=== PATIENT | female | born 2000 | race Caucasian/White ===

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

== ENCOUNTER → 2021-01-26 | Outpatient (CLI) | payer OTHER ==
--- NOTE | 2021-01-26 08:52 | REP ---
INDICATION: EPIGASTRIC PAIN. COMPARISON: CT 12/28/2020. TECHNIQUE: Real-time sonographic evaluation of right upper quadrant performed. FINDINGS: The gallbladder demonstrates no evidence of intraluminal sludge or calculi, wall thickening or pericholecystic fluid. There is no intrahepatic or extrahepatic biliary dilatation, common bile duct measures 3 mm in maximum diameter. The liver demonstrates homogeneous echotexture with no gross mass. The pancreas demonstrates homogeneous echotexture with no gross mass. The right kidney demonstrates no hydronephrosis, with a normal size of 11.1 cm in length. No free fluid is seen. IMPRESSION: Negative right upper quadrant ultrasound. <Electronically signed by Tang Sutton > 01/26/21 [id number]
== END ==
LOC: M RAD 07:38
PROVIDERS: ATTEND Family Medicine Addiction Medicine
DX: R10.13 Epigastric pain (principal)

== ENCOUNTER 2021-06-07 21:02 | Emergency (ER) | payer OTHER ==
[~2021-06-07] VITALS: Ht 167.6 cm; Wt 73.4 kg
[2021-06-08 01:03] LABS: BASO # 0.1 10^3/uL (0.0-0.2); BASO % 0.5 % (0.0-1.0); EOS # 0.5 10^3/uL (0.0-0.5); EOS % 3.4 % (0.0-3.0); HEMATOCRIT 35.3 % (36.0-47.0); HEMOGLOBIN 11.9 g/dl (12.0-15.5); LYMPH # 3.4 10^3/uL (1.5-5.0); LYMPH % 22.5 % (24.0-44.0); MEAN CORPUSCULAR HEMOGLOBIN 29.8 pg (27.0-33.0); MEAN CORPUSCULAR HGB CONC 33.7 g/dl (32.0-36.5); MEAN CORPUSCULAR VOLUME 88.3 fl (80.0-96.0); MONO % 6.4 % (2.0-8.0); NEUTROPHILS # 10.1 10^3/uL (1.5-8.5); NEUTROPHILS % 66.9 % (36.0-66.0); PLATELET COUNT, AUTOMATED 371 10^3/uL (150-450); WHITE BLOOD COUNT 15.2 10^3/uL (4.0-10.0)
[2021-06-08 01:26] LABS: ALBUMIN 4.2 GM/DL (3.2-5.2); ALT/SGPT 21 U/L (12-78); BILIRUBIN,TOTAL 0.3 MG/DL (0.2-1.0); BLOOD UREA NITROGEN 16 MG/DL (7-18); CALCIUM LEVEL 9.2 MG/DL (8.5-10.1); CARBON DIOXIDE LEVEL 28 MEQ/L (21-32); CHLORIDE LEVEL 104 MEQ/L (98-107); CREATININE FOR GFR 0.67 MG/DL (0.55-1.30); GLUCOSE, FASTING 89 MG/DL (70-100); MAGNESIUM LEVEL 1.9 MG/DL (1.8-2.4); POTASSIUM SERUM 3.7 MEQ/L (3.5-5.1); SODIUM LEVEL 137 MEQ/L (136-145); TOTAL PROTEIN 7.4 GM/DL (6.4-8.2)
[2021-06-08 03:15] VITALS: BP 121/64
== END 2021-06-08 03:32 | disposition home or self-care (01) ==
LOC: M ED 21:02
DX: R10.9 Unspecified abdominal pain (principal); Z87.442 Personal history of urinary calculi

== ENCOUNTER → 2023-12-18 | Outpatient (REF) | payer OTHER ==
[2023-12-18 20:33] LABS: Trichomonas vaginalis (AMP) NOT DETECTED (NEGATIVE)
[2023-12-18 20:57] LABS: GC DNA AMPLIFICATION NEGATIVE (NEGATIVE)
== END ==
LOC: M WUC 19:07
PROVIDERS: ATTEND Student in an Organized Health Care Education/Training Program
DX: R30.0 Dysuria (principal)

== ENCOUNTER → 2024-07-22 | Outpatient (CLI) | payer OTHER | LOC: M WUC 15:55 | PROVIDERS: ATTEND Physician Assistant | DX: M25.531 Pain in right wrist (principal) ==

== ENCOUNTER 2024-11-22 17:37 | Inpatient (IN) | payer OTHER ==
[~2024-11-22] VITALS: Ht 165.1 cm; Wt 71.4 kg
[2024-11-22 18:31] LABS: BASO # 0.1 10^3/uL (0.0-0.2); BASO % 0.6 % (0.0-1.0); EOS # 0.1 10^3/uL (0.0-0.5); EOS % 0.4 % (0.0-3.0); LYMPH # 1.7 10^3/uL (1.5-5.0); LYMPH % 13.8 % (24.0-44.0); MONO # 0.8 10^3/uL (0.0-0.8); MONO % 6.8 % (2.0-8.0); NEUTROPHILS # 9.5 10^3/uL (1.5-8.5); NEUTROPHILS % 78.1 % (36.0-66.0); PLATELET COUNT, AUTOMATED 388 10^3/uL (150-450)
[2024-11-22 18:57] LABS: AMPHETAMINES LEVEL URINE NEGATIVE (NEGATIVE); CANNABINOIDS URINE NEGATIVE (NEGATIVE); METHADONE URINE NEGATIVE (NEGATIVE); OPIATES URINE NEGATIVE (NEGATIVE); PHENCYCLIDINE URINE NEGATIVE (NEGATIVE)
[2024-11-22 18:58] LABS: BARBITURATES URINE NEGATIVE (NEGATIVE); BENZODIAZEPINES URINE NEGATIVE (NEGATIVE); COCAINE METABOLITE URINE NEGATIVE (NEGATIVE)
[2024-11-22 19:00] LABS: ETHYL ALCOHOL (ETHANOL) < 0.003 % (0.000-0.010)
[2024-11-22 19:02] LABS: SALICYLATE LEVEL < 3.0 MG/DL (<30)
[2024-11-22 19:21] LABS: ALT/SGPT 15 U/L (7.0-40); AST/SGOT 19 U/L (<34); CALCIUM LEVEL 9.8 MG/DL (8.5-10.1); CARBON DIOXIDE LEVEL 25 MMOL/L (20-31); CHLORIDE LEVEL 104 MMOL/L (98-107); CPK CREATINE PHOSPHOKINASE 39 U/L (34-145); CREATININE FOR GFR 0.75 MG/DL (0.55-1.30); GLOMERULAR FILTRATION RATE > 90.0 (>60); POTASSIUM SERUM 3.8 MMOL/L (3.5-5.1); SODIUM LEVEL 140 MMOL/L (136-145)
[2024-11-22 19:25] LABS: HCG, SERUM QUALITATIVE NEGATIVE (NEGATIVE)
[2024-11-22] MEDS ORDERED: HOME MED LIST COMPLETE! XX SCH (19:50)
[2024-11-22] MEDS: ONDANSETRON 4MG 2ML VIAL IV STA (22:11)
[2024-11-23] MEDS ORDERED: OLANZapine 5 MG TAB PO PRN (15:30)
[2024-11-23] MEDS ORDERED: MAALOX 30 ML SUSP *UDC PO PRN (15:30)
[2024-11-23] MEDS ORDERED: MOM 30 ML SUSPENSION UDC PO PRN (15:30)
[2024-11-23] MEDS ORDERED: LORazepam 1 MG TAB PO PRN (15:30)
[2024-11-23] MEDS ORDERED: traZODone 50 MG TAB PO PRN (15:30)
[2024-11-23] MEDS ORDERED: HALOPERIDOL 5 MG TAB PO PRN (15:30)
[2024-11-23] MEDS: NICOTINE 14 MG/24 HR TRANSDERMAL TD SCH (15:53)
[2024-11-23 17:00] VITALS: BP 127/76; TEMP 97.5; O2SAT 98
[2024-11-24 06:34] VITALS: BP 116/67; TEMP 97.9; O2SAT 99
[2024-11-24 16:12] LABS: KETONE, URINE AUTO RFX 1+ mg/dL (NEGATIVE); MUCUS, URINE RFX LARGE (NEGATIVE); NITRITE, URINE AUTO RFX NEGATIVE (NEGATIVE); RBC, URINE AUTO RFX 13 /HPF (0-3); SQUAM EPITHELIAL CELL UR AURFX 61 /HPF (0-6)
[2024-11-24 16:13] LABS: LEUKOCYTE ESTERASE UR AUTO RFX 3+ (NEGATIVE); WBC, URINE AUTO RFX 30 /HPF (0-3)
[2024-11-24 17:24] VITALS: BP 123/68; TEMP 98.2; O2SAT 100
[2024-11-24] MEDS: CEFDINIR 300 MG CAP PO ONE (18:08)
[2024-11-24 18:55] LABS: Trichomonas vaginalis (AMP) NOT DETECTED (NEGATIVE)
[2024-11-24 19:18] LABS: GC DNA AMPLIFICATION NEGATIVE (NEGATIVE)
[2024-11-24] MEDS: CEFDINIR 300 MG CAP PO SCH (20:55)
[2024-11-25] MEDS ORDERED: HYDR-3363 PO (03:16)
[2024-11-25] MEDS ORDERED: CEFD300CAP PO (03:16)
[2024-11-25 06:40] VITALS: BP 123/76; TEMP 97.6; O2SAT 99
== END 2024-11-25 10:11 | disposition home or self-care (01) | DRG 756 ==
LOC: M ED 17:37 → M ED INP 11-23 15:27 → M PSY 11-23 16:52
PROVIDERS: ADMIT Internal Medicine; ATTEND Internal Medicine
DX: F41.1 Generalized anxiety disorder (principal); F10.10 Alcohol abuse, uncomplicated; I10 Essential (primary) hypertension; F43.10 Post-traumatic stress disorder, unspecified; E04.1 Nontoxic single thyroid nodule; G25.0 Essential tremor